=== PATIENT | female | born 1980 | race Two or more races ===

== ENCOUNTER 2020-09-09 07:33 | Emergency (ER) | payer SELFPAY ==
[~2020-09-09] VITALS: Ht 170.2 cm; Wt 76.7 kg
[2020-09-09] MEDS ORDERED: FAMOTIDINE 20 MG/2 ML IVPush ONE (08:00)
[2020-09-09] MEDS ORDERED: ONDANSETRON 2MG/ML, 2ML IVPush ONE (08:00)
[2020-09-09] MEDS ORDERED: SODIUM CHLORIDE 0.9% 1,000ML IVBOLUS ONE (08:00)
--- NOTE | 2020-09-09 08:17 | NUR ---
UNABLE TO START PIVX2, PILAR SERRANO AT BEDSIDE. URINE COLLECTED AND SENT TO LAB.
[2020-09-09 08:23] LABS: MICROSCOPIC NOT IND
[2020-09-09] MEDS ORDERED: ONDANSETRON 2MG/ML, 2ML ONE (08:29)
[2020-09-09] MEDS ORDERED: MORPHINE SULFATE 4 MG/ML, 1ML ONE ×2 (08:30→09:45)
[2020-09-09] MEDS: MORPHINE SULFATE 4 MG/ML, 1ML IVPush PRN ×2 (08:32→09:46)
[2020-09-09 08:35] LABS: BASOPHILS % (AUTO) 0 % (0-1); EOSINOPHILS % (AUTO) 2 % (1-7); LYMPHOCYTES % (AUTO) 11 % (22-44); MEAN CORPUSCULAR HEMOGLOBIN 28.1 pg (27.0-34.8); MEAN CORPUSCULAR HGB CONC 33.6 g/dL (32.4-35.8); MEAN PLATELET VOLUME 7.6 fL (7.4-10.4); MONOCYTES % (AUTO) 7 % (2-9); NEUTROPHILS % (AUTO) 81 % (42-75); PLATELET COUNT 315 x10^3/uL (130-400); RED BLOOD COUNT 4.63 x10^6/uL (3.82-5.3); RED CELL DISTRIBUTION WIDTH 15.8 % (9.6-15.2)
[2020-09-09] MEDS ORDERED: FAMOTIDINE 20 MG/2 ML ONE (08:37)
--- NOTE | 2020-09-09 08:41 | NUR ---
PT MEDICATED PER EMAR, 1L NS BOLUS STARTED. VSS, NADN. AWAITING CT.
[2020-09-09 08:42] LABS: ALANINE AMINOTRANSFERASE 14 U/L (12-78); ALBUMIN 3.3 g/dL (3.4-5.0); ANION GAP 9 mmol/L (5-15); CALCIUM 7.9 mg/dL (8.5-10.1); CHLORIDE 107 mmol/L (98-107); CREATININE 0.66 mg/dL (0.55-1.02)
[2020-09-09 08:47] LABS: ALKALINE PHOSPHATASE 60 U/L (45-117); BILIRUBIN,TOTAL 1.3 mg/dL (0.2-1.0); TOTAL PROTEIN 7.3 g/dL (6.4-8.2)
--- NOTE | 2020-09-09 08:53 | NUR ---
THIS IS A 39 YO F W/ C/O BILAT FLANK PAIN AND BILAT UPR ABD PAIN X2 DAYS. ONLY REPORTED MEDICAL HX IS ASTHMA AND ANXIETY. PT DESCRIBES PAIN WORSE THEN CHILDBIRTH. PT RESTING ON GURNEY W/ CALL LIGHT IN REACH AND SIDE RAILS UPX2. MAURICIO, YUDI.
--- NOTE | 2020-09-09 09:05 | NUR ---
PT SITTING UP ON GURNEY COMFORTABLY, USING PHONE. RESP EVEN AND UNLABORED,
--- NOTE | 2020-09-09 09:10 | NUR ---
PT TO CT.
--- NOTE | 2020-09-09 09:48 | NUR ---
PT REPORTS PAIN RETURNED. PT MEDICATED PER EMAR. PT SITTING UP ON GURNEY WATCHING VIDEOS ON PHONE. VSKera, YUDI. AWAITING CT RESULTS.
--- NOTE | 2020-09-09 09:54 | NUR ---
ALL TESTS RESULTED. PT IS UP FOR RECHECK AT THIS TIME.
[2020-09-09] MEDS ORDERED: OMNIPAQUE 350 MG/ML, 100ML BOTTLE ONE (10:05)
--- NOTE | 2020-09-09 10:18 | NUR ---
AT BEDSIDE FOR RECHECK.
[2020-09-09 10:29] VITALS: BP 115/65
--- NOTE | 2020-09-09 10:50 | NUR ---
Patient given discharge instructions and they have confirmed that they understand the instructions. Patient ambulatory with steady gait.
== END 2020-09-09 10:51 | disposition home or self-care (01) ==
LOC: ED 08:51
DX: R10.84 Generalized abdominal pain (principal); R19.7 Diarrhea, unspecified
CPT/HCPCS: 36415; 74177; 80053; 81003; 83690; 84703; 85025; 96361; 96374; 96375; 96376; 99285; J2270; J2405; J7030; Q9967

== ENCOUNTER 2020-10-02 10:41 | Emergency (ER) | payer OTHER ==
[~2020-10-02] VITALS: Ht 170.2 cm; Wt 75.0 kg
--- NOTE | 2020-10-02 11:19 | NUR ---
PT TO ROOM FROM LOBBY VIA W/C. "I FEEL DOWN ONE STEP AND TWISTED OR BROKE MY ANKLE. I'M IN SO MUCH PAIN" RIGHT FOOT SLIGHTLY SWOLLEN, CMS INTACT. FOOT ELEVATED AND PT PROVIDED WITH ICE.
[2020-10-02 11:24] VITALS: BP 121/54
[2020-10-02] MEDS ORDERED: HYDROcodone/APAP 5/325 TABLET PO ONE (12:30)
[2020-10-02] MEDS ORDERED: HYDROcodone/APAP 5/325 TABLET ONE (12:31)
--- NOTE | 2020-10-02 12:38 | NUR ---
PT WITH ONGOING C/O "IT HURTS SO BAD, I KNOW ITS BROKEN. IT HURTS SO BAD" PT MEDICATED ORDERED. PORTABLE XRAY IN PROCESS. PTS DAUGHTER AT BEDSIDE.
--- NOTE | 2020-10-02 13:30 | NUR ---
AIR CAST SPLINT APPLIED, CRUTCH WALKING EXPLAINED AND DEMONSTRATED TO PT. PT ABLE TO DEMONSTRATE CRUTCH WALKING. PT PROVIDED A WORK NOTE PER NELLIE CARRASCO, PT ABLE TO RETURN TO WORK TOMORROW. NO SIG CHANGE IN PAIN AFTER MEDICATION. REVIEWED DC INSTRUCTIONS WITH PT, UNDERSTANDING VERBALIZED. PT LEFT CRUTCH WALKER WITH FAMILY.
== END 2020-10-02 13:33 | disposition home or self-care (01) ==
LOC: ED 13:06
DX: S93.401A Sprain of unspecified ligament of right ankle, initial encounter (principal); S93.601A Unspecified sprain of right foot, initial encounter; F17.210 Nicotine dependence, cigarettes, uncomplicated; W10.9XXA Fall (on) (from) unspecified stairs and steps, initial encounter; Y93.89 Activity, other specified; Y92.009 Unspecified place in unspecified non-institutional (private) residence as the place of occurrence of the external cause; Y99.8 Other external cause status
CPT/HCPCS: 99284